=== PATIENT | male | born 1960 | race Caucasian/White ===

== ENCOUNTER → 2018-11-27 | Outpatient (CLI) | payer OTHER ==
[~2018-11-27] MED LIST: CIPR-214 PO; FAMO20TA28 PO; FLU60SYR30 IM ONLY; HYDR-653 PO; LISI-362 PO; LISI20TA29 PO; NO MEDS; PHEN200T32 PO; TAMS0.4C25 PO
[2018-11-27 08:47] LABS: PLATELET COUNT, AUTOMATED 271 K/uL (150-450)
[2018-11-27 09:19] LABS: LDL CHOLESTEROL 109 mg/dl
== END ==
LOC: LAB 08:21
PROVIDERS: ATTEND Internal Medicine
DX: Z00.00 Encounter for general adult medical examination without abnormal findings (principal); E78.5 Hyperlipidemia, unspecified; I10 Essential (primary) hypertension; Z12.5 Encounter for screening for malignant neoplasm of prostate
CPT/HCPCS: 36415; 81001; 82040; 82247; 82310; 82374; 82435; 82465; 82565; 82947; 83718; 84075; 84132; 84153; 84155; 84295; 84443; 84450; 84460; 84478; 84520; 85025